=== PATIENT | male | born 1980 | race African-American/Black ===

== ENCOUNTER 2019-11-01 14:36 | Emergency (ER) | payer MEDICARE, OTHER ==
[2019-11-01 14:54] VITALS: TEMP 97.8
--- NOTE | 2019-11-01 15:03 | ED.PDOC ---
History of Present Illness - General Chief Complaint: General Stated Complaint: All over body pain Time Seen by Provider: 11/01/19 14:40 Source: patient, RN notes reviewed, Vital Signs reviewed Exam Limitations: no limitations - History of Present Illness Initial Comments: 39-year-old male with reported history of sickle cell disease presenting to the emergency department with back and leg pain typical of his previous sickle cell crises, onset last night. He does not take anything for pain at home. 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 His last sickle cell flare was 2 months ago. He denies any cough, shortness of breath, fever. Allergies/Adverse Reactions: Allergies Prochlorperazine [From Compazine] Allergy (Verified 11/01/19 14:53) Past Medical History (General) - Patient Medical History Hx Stroke: No Hx Asthma: No Hx of COPD: No Hx Hypertension: No Hx Diabetes: No Hx Cancer: No Surgical History: no surgical history - Vaccination History Hx Influenza Vaccination: Yes - Social History Hx Tobacco Use: No Hx Alcohol Use: No Hx Substance Use: No Hx Substance Use Treatment: No Hx Depression: No - Female History Patient is a Female of Child Bearing Age (10 -59 yrs old): No Patient : No Family Medical History - Family History Mother Family History: Unknown Progress - Progress Progress: 11/01/19 16:41 Rechecked. Patient states he has to leave. He has to take someone to work. Blood work is still pending at this time. Patient would like to sign out AGAINST MEDICAL ADVICE. I explained that he is welcome to return to the emergency room at any time for any reason.He understands that leaving AGAINST MEDICAL ADVICE might result in missed pathology that could result in , disability, increased pain. He has capacity to understand consequences of his decisions and can make medical decisions for himself. DDX: Sickle cell pain crisis, acute chest syndrome Rey Carey DO [facility] #[id number] - Results/Orders Results/Orders: EXAM DESCRIPTION: Chest,1 View CLINICAL HISTORY: 39 years Male, chest pain COMPARISON: None. FINDINGS: The heart and mediastinum are within normal limits. The lung starr are clear of active infiltrates. The pulmonary vascularity is unremarkable. No active pleural disease is present. IMPRESSION: 1. Normal study. Electronically signed by: Nir Zurita MD 11/01/2019 3:23 PM CDT 11/01/19 15:00 EKG STAT 11/01/19 15:20 RETICULOCYTE COUNT Stat Laboratory Results - last 24 hr 11/01/19 11/01/19 15:20 15:20 WBC 9.8 RBC 3.91 L Hgb 9.5 L Hct 28.0 L MCV 71.5 L MCH 24.3 L MCHC 33.9 RDW 22.8 H Plt Count 226 MPV 9.0 Absolute Neuts (auto) Not Reportable Absolute Lymphs (auto) Not Reportable Absolute Monos (auto) Not Reportable Absolute Eos (auto) Not Reportable Neutrophils % Not Reportable Neutrophils % (Manual) 56.0 Lymphocytes % Not Reportable Lymphocytes % (Manual) 32.0 Monocytes % Not Reportable Monocytes % (Manual) 8.0 Eosinophils % Not Reportable Basophils % Not Reportable Eosinophils 4.0 Hypochromia 1+ Platelet Estimate Normal Anisocytosis 2+ Microcytosis 1+ Target Cells 4+ Sodium 139 Potassium 3.5 L Chloride 107 Carbon Dioxide 27 Anion Gap 8.5 L BUN 9 Creatinine 0.94 BUN/Creatinine Ratio 9.6 L Random Glucose 105 Serum Osmolality 276.6 Calcium 9.0 Departure - Departure Clinical Impression: Sickle cell pain crisis Disposition: Left Against Medical Advice Condition: Good Departure Forms: ED Discharge - Pt. Copy, Patient Portal Self Enrollment Diet: resume usual diet Activity: increase activity as tolerated
--- NOTE | 2019-11-01 15:25 | RAD ---
EXAM DESCRIPTION: Chest,1 View CLINICAL HISTORY: 39 years Male, chest pain COMPARISON: None. FINDINGS: The heart and mediastinum are within normal limits. The lung starr are clear of active infiltrates. The pulmonary vascularity is unremarkable. No active pleural disease is present. IMPRESSION: 1. Normal study. Electronically signed by: Nir Zurita MD 11/01/2019 3:23 PM CDT
[2019-11-01] MEDS: ONDANSETRON INJ 4 MG/2 ML VIAL IV ONE (15:44)
[2019-11-01] MEDS: MORPHINE SULFATE INJ 10 MG/ML VIAL IV ONE ×2 (15:44→16:22)
[2019-11-01 17:01] VITALS: BP 145/100; O2SAT 99
== END 2019-11-01 16:45 | disposition left against medical advice (07) ==
LOC: ER 14:36
DX: D57.01 Hb-SS disease with acute chest syndrome (principal); Z53.29 Procedure and treatment not carried out because of patient's decision for other reasons
CPT/HCPCS: 36415; 71045; 80048; 85025; 85045; 93005; J2270; J2405

== ENCOUNTER 2019-11-04 16:40 | Emergency (ER) | payer MEDICARE, OTHER ==
[2019-11-04] MEDS ORDERED: SODIUM CHLORIDE 0.9% 1000ML 1,000 ML IVS ONE (17:36)
[2019-11-04] MEDS ORDERED: ONDANSETRON INJ 4 MG/2 ML VIAL IV ONE (17:37)
[2019-11-04] MEDS ORDERED: HYDROmorphone HCL INJ 2 MG/ML VIAL IV ONE (17:37)
--- NOTE | 2019-11-04 19:03 | ED.PDOC ---
History of Present Illness - General Chief Complaint: General Stated Complaint: sickle cell pain Time Seen by Provider: 11/04/19 17:31 Source: patient, RN notes reviewed, Vital Signs reviewed, old records - From his ED visit 3 days ago. Exam Limitations: no limitations - History of Present Illness Initial Comments: Patient is a 39-year-old -Citizen Of [place] male who presents with complaints of back pain and leg pain. Patient states this is typical for his sickle cell crisis. Patient denies any fever or chills. The pain is stabbing and throbbing in nature. Worse with movement, only better with narcotics. No radiation of the pain. Pain is severe in intensity. Timing/Duration: getting worse - Patient's had this pain off and on for the last 3 to 4 days. Severity: severe Improving Factors: medication - Narcotics Worsening Factors: movement Associated Symptoms: denies symptoms Allergies/Adverse Reactions: Allergies Prochlorperazine [From Compazine] Allergy (Verified 11/04/19 17:11) Home Medications: Ambulatory Orders Hydroxyurea 500 mg PO DAILY #30 cap 11/04/19 Review of Systems - Review of Systems Constitutional: States: no symptoms reported, see HPI. Denies: chills, fever, malaise, weakness EENTM: States: no symptoms reported. Denies: eye pain, double vision Respiratory: States: no symptoms reported. Denies: cough, short of breath, stridor Cardiology: States: no symptoms reported. Denies: chest pain, edema, palpitations, syncope Gastrointestinal/Abdominal: States: no symptoms reported. Denies: abdominal pain, diarrhea, nausea, vomiting Genitourinary: States: no symptoms reported Musculoskeletal: States: see HPI, back pain, joint pain, muscle pain Skin: States: no symptoms reported. Denies: change in color, rash Neurological: States: no symptoms reported. Denies: headache, numbness, paresthesia, tingling, tremors, weakness Endocrine: States: no symptoms reported Hematologic/Lymphatic: States: no symptoms reported All other Systems: Reviewed and Negative Past Medical History (General) - Patient Medical History Hx Stroke: No Hx Asthma: No Hx of COPD: No Hx Hypertension: No Hx Diabetes: No Hx Cancer: No Surgical History: no surgical history - Vaccination History Hx Influenza Vaccination: Yes - Social History Hx Tobacco Use: No Hx Alcohol Use: No Hx Substance Use: No Hx Substance Use Treatment: No Hx Depression: No - Activities of Daily Living Hospice Agency (if applicable):: None - Female History Patient is a Female of Child Bearing Age (10 -59 yrs old): No Patient : No Family Medical History - Family History Mother Family History: Unknown Physical Exam - Physical Exam General Appearance: Alert, Anxious, Obvious distress, Well Developed, Well Groomed, Well Hydrated, Well Nourished Eye Exam: bilateral normal Ears, Nose, Throat: hearing grossly normal, normal ENT inspection Neck: non-tender, full range of motion, supple Respiratory: chest non-tender, lungs clear, normal breath sounds, no respiratory distress, no accessory muscle use Cardiovascular/Chest: normal peripheral pulses, regular rate, rhythm, no edema, no gallop, no JVD Peripheral Pulses: radial,right: 2+, radial,left: 2+ Gastrointestinal/Abdominal: normal bowel sounds, non tender, soft, no organomegaly, no pulsatile mass Back Exam: normal inspection, no CVA tenderness, no vertebral tenderness Extremity: normal range of motion, non-tender, normal inspection 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 11/04/19 19:04 Patient's been out of hydroxyurea for a few days. I suspect this is what is causing his sickle crisis. I will refill his prescription. Patient will not be given any narcotics to go home on. I discussed this plan of care with the patient he voices understanding and agreement. Byron Chopra M.D. #[id number] Departure - Departure Clinical Impression: Sickle cell crisis, Noncompliance with medication regimen, Sickle cell pain crisis Time of Disposition: 19:05 Disposition: Discharge to Home or Self Care Condition: Good Departure Forms: ED Discharge - Pt. Copy, Patient Portal Self Enrollment Diet: resume usual diet Activity: increase activity as tolerated Prescriptions: Hydroxyurea 500 mg PO DAILY #30 cap Home Medications: Ambulatory Orders Hydroxyurea 500 mg PO DAILY #30 cap 11/04/19
[2019-11-04 19:14] VITALS: BP 140/101; TEMP 97.6; O2SAT 100
== END 2019-11-04 19:13 | disposition home or self-care (01) ==
LOC: ER 16:40
DX: D57.00 Hb-SS disease with crisis, unspecified (principal); Z91.14 Patient's other noncompliance with medication regimen
CPT/HCPCS: 36415; 80053; 83690; 85025; 93005; J1170; J2405; J7030

== ENCOUNTER 2019-11-10 18:17 | Emergency (ER) | payer MEDICARE, OTHER ==
[2019-11-10 18:36] VITALS: BP 97/68; TEMP 97.6; O2SAT 98
--- NOTE | 2019-11-10 19:06 | ED.PDOC ---
History of Present Illness - General Chief Complaint: General Stated Complaint: BODY ACHES Time Seen by Provider: 11/10/19 19:04 Source: patient, RN notes reviewed, Vital Signs reviewed, RN/MD - From his visit on 11/04/2019. - History of Present Illness Initial Comments: Patient is a 39-year-old -[place] male who presents with complaints of having a sickle cell flare. I saw this patient 1 week ago for same. At that time I refilled his hydroxyurea and had a long discussion with the patient about his need to follow back up with his oncologist to refill his pain medication. Patient states that he did contact his oncologist but she is retiring and he has a new appointment this coming Sunday. Patient denies any fevers, chills, nausea, vomiting, diarrhea. No sign of infection. Patient is having pains in his leg and back which are consistent with his previous episodes of sickle flare. Patient states he is here for Dilaudid because he has no pain medicine at home. Patient was offered Toradol IM and patient refused and left AGAINST MEDICAL ADVICE. Patient was offered a full work-up but patient refused. Timing/Duration: 24 hours Severity: severe Improving Factors: nothing Worsening Factors: movement Associated Symptoms: denies symptoms Allergies/Adverse Reactions: Allergies Prochlorperazine [From Compazine] Allergy (Verified 11/04/19 17:11) Home Medications: Ambulatory Orders Hydroxyurea 500 mg PO DAILY #30 cap 11/04/19 Folic Acid [(None)] 1 mg PO DAILY 11/10/19 Oxycodone HCl [Oxycontin] 10 mg PO Q6HR PRN 11/10/19 Review of Systems - Review of Systems Constitutional: States: no symptoms reported, see HPI. Denies: chills, fever, malaise, weakness EENTM: States: no symptoms reported. Denies: eye pain, double vision Respiratory: States: no symptoms reported. Denies: cough, short of breath, stridor, wheezing Cardiology: States: no symptoms reported. Denies: chest pain, palpitations Gastrointestinal/Abdominal: States: no symptoms reported. Denies: abdominal pain, constipation, diarrhea, nausea, vomiting Genitourinary: States: no symptoms reported Musculoskeletal: States: back pain, muscle pain Skin: States: no symptoms reported. Denies: change in color, rash Neurological: States: no symptoms reported. Denies: tingling, tremors, weakness Endocrine: States: no symptoms reported Hematologic/Lymphatic: States: no symptoms reported. Denies: anemia, easy bleeding, easy bruising All other Systems: No Change from Baseline Past Medical History (General) - Patient Medical History Hx Stroke: No Hx Asthma: No Hx of COPD: No Hx Congestive Heart Failure: No Hx Hypertension: No Hx Diabetes: No Hx Cancer: No Surgical History: no surgical history - Vaccination History Hx Influenza Vaccination: Yes Immunizations Up to Date: Yes - Social History Hx Tobacco Use: No Hx Alcohol Use: No Hx Substance Use: No Hx Substance Use Treatment: No Hx Depression: No - Female History Patient : No Family Medical History - Family History Mother Family History: Unknown Physical Exam - Physical Exam General Appearance: Alert, Anxious, Obvious distress, Well Developed, Well Groomed, Well Hydrated, Well Nourished Ears, Nose, Throat: hearing grossly normal, normal ENT inspection, normal pharynx Neck: non-tender, full range of motion, supple, normal inspection Respiratory: chest non-tender, lungs clear, normal breath sounds, no respiratory distress, no accessory muscle use Cardiovascular/Chest: normal peripheral pulses, regular rate, rhythm, no edema, no gallop, no JVD, no murmur Peripheral Pulses: radial,right: 2+, radial,left: 2+ Gastrointestinal/Abdominal: normal bowel sounds, non tender, soft Back Exam: normal inspection, no CVA tenderness, no vertebral tenderness Extremity: normal range of motion, calf tenderness 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 11/10/19 18:50 Patient was offered work-up and NSAID pain medication. Patient refused as he wanted narcotics, specifically Dilaudid. Patient is leaving AMA to seek care at another facility. Byron Chopra M.D. #[id number] Departure - Departure Clinical Impression: Sickle cell anemia Qualifiers: Sickle-cell associated disorders: without crisis Qualified Code(s): D57.1 - Sickle-cell disease without crisis Time of Disposition: 18:50 Disposition: Left Against Medical Advice Condition: Good Departure Forms: ED Discharge - Pt. Copy, Patient Portal Self Enrollment Diet: resume usual diet Activity: increase activity as tolerated Home Medications: Ambulatory Orders Hydroxyurea 500 mg PO DAILY #30 cap 11/04/19 Folic Acid [(None)] 1 mg PO DAILY 11/10/19 Oxycodone HCl [Oxycontin] 10 mg PO Q6HR PRN 11/10/19
== END 2019-11-10 19:13 | disposition left against medical advice (07) ==
LOC: ER 18:17
DX: D57.1 Sickle-cell disease without crisis (principal); Z53.29 Procedure and treatment not carried out because of patient's decision for other reasons; Z79.899 Other long term (current) drug therapy; Z88.8 Allergy status to other drugs, medicaments and biological substances

== ENCOUNTER 2020-05-19 22:53 | Emergency (ER) | payer OTHER ==
[2020-05-19] MEDS ORDERED: SODIUM CHLORIDE 0.9% 1000ML 1,000 ML IVS ONE (23:11)
[2020-05-19] MEDS ORDERED: HYDROcodone 7.5MG/APAP 325MG 1 EA TAB PO ONE (23:13)
[2020-05-19] MEDS ORDERED: IBUPROFEN 200 MG TAB PO ONE (23:14)
--- NOTE | 2020-05-19 23:32 | RAD ---
EXAM DESCRIPTION: Chest,1 View CLINICAL HISTORY: 40 years Male sickle cell pain COMPARISON: 11/01/2019. FINDINGS: The cardiomediastinal silhouette appears unremarkable. No consolidating infiltrates or pleural effusions. No pneumothorax. IMPRESSION: No acute abnormality is identified. Electronically signed by: Byron Ackerman MD 05/19/2020 11:30 PM [employer]ANG [employer]ER
[2020-05-19] MEDS ORDERED: KETOROLAC TROMETHAMINE INJ 30 MG/ML VIAL IV ONE (23:44)
[2020-05-19] MEDS ORDERED: MORPHINE SULFATE INJ 10 MG/ML VIAL IV ONE (23:44)
[2020-05-20] MEDS ORDERED: cefTRIAXone SODIUM 1 GM in SODIUM CHL 0.9% 50ML MIN-BAG+ 50 ML IVPB ONE (00:21)
[2020-05-20 00:36] VITALS: TEMP 100.2; O2SAT 98
[2020-05-20 01:04] VITALS: BP 129/98
[2020-05-20] MEDS ORDERED: SODIUM CHLORIDE 0.9% (FLUSH) 10 ML SYG ONE (01:10)
[2020-05-20] MEDS ORDERED: HYDROcodone 7.5MG/APAP 325MG 1 EA TAB PO ONE (01:11)
[2020-05-20] MEDS ORDERED: HYDROcodone 7.5MG/APAP 325MG 1 EA TAB ONE (01:12)
--- NOTE | 2020-05-20 01:14 | ED.PDOC ---
History of Present Illness - General Chief Complaint: General Stated Complaint: sickle cell crisis Time Seen by Provider: 05/19/20 22:55 Source: patient Exam Limitations: no limitations - History of Present Illness Initial Comments: The patient is a 40-year-old -[place] male presented emergency room secondary to a flare of pain from his sickle cell anemia. The patient reported that he woke up this morning with pain in his left leg and pain in his neck which is his normal presenting initial symptoms. No known fever according to him but he does have a low-grade fever upon arrival here. He has had a mild runny nose. No nausea vomiting or diarrhea. No chest pain or shortness of breath. No strokelike symptoms. He does take hydroxyurea and did take Tylenol 3 at home. He has been trying to keep well-hydrated. He is pleasant and cooperative today. Timing/Duration: other - 12 hours Severity: moderate Improving Factors: nothing Worsening Factors: nothing Associated Symptoms: malaise Allergies/Adverse Reactions: Allergies Prochlorperazine [From Compazine] Allergy (Verified 11/04/19 17:11) Home Medications: Ambulatory Orders Hydroxyurea 500 mg PO DAILY #30 cap 11/04/19 Folic Acid [(None)] 1 mg PO DAILY 11/10/19 Amoxicillin & Pot Clavulanate [Augmentin Tab] 875 mg PO BID #14 tab 05/20/20 Review of Systems - Review of Systems Constitutional: States: no symptoms reported EENTM: States: no symptoms reported Respiratory: States: no symptoms reported Cardiology: States: no symptoms reported Gastrointestinal/Abdominal: States: no symptoms reported Genitourinary: States: no symptoms reported Musculoskeletal: States: neck pain Skin: States: no symptoms reported Neurological: States: no symptoms reported Endocrine: States: no symptoms reported All other Systems: No Change from Baseline Past Medical History (General) - Patient Medical History Hx Seizures: No Hx Stroke: No Hx Dementia: No Hx Asthma: No Hx of COPD: No Hx Cardiac Disorders: No Hx Congestive Heart Failure: No Hx Pacemaker: No Hx Hypertension: No Hx Thyroid Disease: No Hx Diabetes: No Hx Gastroesophageal Reflux: No Hx Renal Disease: No Hx Cancer: No Hx of HIV: No Hx Hepatitis C: No Hx MRSA: No - Vaccination History Hx Tetanus, Diphtheria Vaccination: Yes Hx Influenza Vaccination: Yes Hx Pneumococcal Vaccination: No Immunizations Up to Date: Yes - Social History Hx Tobacco Use: No Hx Chewing Tobacco Use: No Hx Alcohol Use: No Hx Substance Use: No Hx Substance Use Treatment: No Hx Depression: No Feels Threatened In Home Enviroment: No Feels Threatened In a Relationship: No Hx Physical Abuse: No Hx Emotional Abuse: No Hx Suspected Abuse: No - Activities of Daily Living Hospice Agency (if applicable):: None - Female History Patient is a Female of Child Bearing Age (10 -59 yrs old): No Patient : No Family Medical History - Family History Mother Family History: Unknown Physical Exam - Physical Exam General Appearance: Alert, Comfortable, No apparent distress Eye Exam: left normal Ears, Nose, Throat: normal ENT inspection, normal pharynx Neck: full range of motion, supple Respiratory: lungs clear, normal breath sounds, no respiratory distress, no accessory muscle use Cardiovascular/Chest: normal peripheral pulses, regular rate, rhythm, no edema Peripheral Pulses: radial,right: 2+, radial,left: 2+ Gastrointestinal/Abdominal: non tender, soft Rectal Exam: deferred Back Exam: no CVA tenderness, no vertebral tenderness Extremity: non-tender, normal inspection, no pedal edema, normal capillary refill 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 The patient received a liter of IV fluids and was placed on low flow oxygen. Blood work is reassuring. He did receive pain medications. The patient does have a low-grade fever. He tested negative for coronavirus and influenza as well as strep. Blood cultures have been done. The patient is going to be placed on Augmentin for the next 7 days. Most likely he has a viral upper respiratory tract infection. ER warnings are given. Keep well-hydrated. Keep warm. Follow-up with primary care doctor towards the end of the week. deana claudio [phone] - Results/Orders Results/Orders: 05/19/20 23:12 Telemetry .CONTINUOUS 05/19/20 23:15 EKG STAT 05/19/20 23:30 BLOOD CULTURE Stat STREP A SCREEN CULTURE Stat RETICULOCYTE COUNT Stat 05/20/20 01:03 UA [URINALYSIS] Stat Laboratory Results - last 24 hr 05/19/20 05/19/20 05/19/20 23:30 23:30 23:30 WBC 10.9 H RBC 3.91 L Hgb 8.7 L Hct 26.0 L MCV 66.6 L MCH 22.2 L MCHC 33.4 RDW 23.2 H Plt Count 274 MPV 8.6 Absolute Neuts (auto) 7.60 H Absolute Lymphs (auto) 1.10 Absolute Monos (auto) 1.40 H Absolute Eos (auto) 0.60 H Absolute Basos (auto) 0.20 H Neutrophils % 69.8 Lymphocytes % 9.7 L Monocytes % 13.1 H Eosinophils % 5.7 H Basophils % 1.7 Normal RBC Morphology Stain quality accept PT 11.3 H INR 1.14 PTT (SP) 23.0 Sodium 139 Potassium 3.6 Chloride 105 Carbon Dioxide 26 Anion Gap 11.6 L BUN 13 Creatinine 0.90 BUN/Creatinine Ratio 14.4 Random Glucose 113 H Serum Osmolality 278.5 Lactic Acid Calcium 9.0 Magnesium 1.9 Total Bilirubin 0.8 AST 16 ALT 17 Alkaline Phosphatase 77 Creatine Kinase 82 CK-MB (CK-2) 0.8 CK-MB (CK-2) % Not Reportable Troponin I < 0.02 B-Natriuretic Peptide < 15.0 Serum Total Protein 7.3 Albumin 4.1 Globulin 3.2 Albumin/Globulin Ratio 1.3 Group A Strep Rapid 05/19/20 05/19/20 23:30 23:30 WBC RBC Hgb Hct MCV MCH MCHC RDW Plt Count MPV Absolute Neuts (auto) Absolute Lymphs (auto) Absolute Monos (auto) Absolute Eos (auto) Absolute Basos (auto) Neutrophils % Lymphocytes % Monocytes % Eosinophils % Basophils % Normal RBC Morphology PT INR PTT (SP) Sodium Potassium Chloride Carbon Dioxide Anion Gap BUN Creatinine BUN/Creatinine Ratio Random Glucose Serum Osmolality Lactic Acid 1.0 Calcium Magnesium Total Bilirubin AST ALT Alkaline Phosphatase Creatine Kinase CK-MB (CK-2) CK-MB (CK-2) % Troponin I B-Natriuretic Peptide Serum Total Protein Albumin Globulin Albumin/Globulin Ratio Group A Strep Rapid Negative Covid negative flu negative Chest x-ray shows no acute pathology. EKG shows normal sinus rhythm with first-degree block at 68 bpm. Mild right axis deviation as well as mild poor R wave progression and elevated voltages all consistent with thin body habitus. Normal QT interval. No ST segment or T wave changes diagnostic for acute ischemia. Departure - Departure Clinical Impression: Sickle cell pain crisis URI (upper respiratory infection) Qualifiers: URI type: unspecified URI Qualified Code(s): J06.9 - Acute upper respiratory infection, unspecified Disposition: Discharge to Home or Self Care Condition: Fair Departure Forms: ED Discharge - Pt. Copy, Patient Portal Self Enrollment Instructions: Sickle Cell Disease (DC) Diet: regular diet Activity: increase activity as tolerated Prescriptions: Amoxicillin & Pot Clavulanate [Augmentin Tab] 875 mg PO BID #14 tab Home Medications: Ambulatory Orders Hydroxyurea 500 mg PO DAILY #30 cap 11/04/19 Folic Acid [(None)] 1 mg PO DAILY 11/10/19 Amoxicillin & Pot Clavulanate [Augmentin Tab] 875 mg PO BID #14 tab 05/20/20 Additional Instructions: The patient is a 40-year-old -[place] male presented emergency room secondary to pain from a mild sickle crisis. The patient received a liter of IV fluids and was placed on low flow oxygen. Blood work is reassuring. He did receive pain medications. The patient does have a low-grade fever. He tested negative for coronavirus and influenza as well as strep. Blood cultures have been done. The patient is going to be placed on Augmentin for the next 7 days. Most likely he has a viral upper respiratory tract infection. ER warnings are given. Keep well-hydrated. Keep warm. Follow-up with primary care doctor towards the end of the week.
== END 2020-05-20 01:14 | disposition home or self-care (01) ==
LOC: ER 22:53
DX: D57.00 Hb-SS disease with crisis, unspecified (principal); J06.9 Acute upper respiratory infection, unspecified; I44.0 Atrioventricular block, first degree; Z20.822 Contact with and (suspected) exposure to COVID-19; Z79.899 Other long term (current) drug therapy; Z88.8 Allergy status to other drugs, medicaments and biological substances
CPT/HCPCS: 36415; 71045; 80053; 81001; 82550; 82553; 83605; 83735; 83880; 84484; 85025; 85045; 85610; 85730; 87040; 87070; 87502; 87635; 87880; 93005; A4216; J0696; J1885; J2270; J7030; J7050